=== PATIENT | female | born 1990 | race Caucasian/White ===

== ENCOUNTER → 2017-06-19 | Outpatient (CLI) | payer BC, OTHER ==
--- NOTE | 2017-06-22 08:01 | CT ---
Exam: CT of the abdomen/pelvis without contrast History: Left lower quadrant pain. Hematuria. Previous history of ovarian cysts and kidney stone. Comparison: None Technique: Axial imaging was performed through the abdomen and pelvis without administering intraveno us contrast. Subsequently coronal and sagittal reformations were generated. Automated exposure contro l techniques were used for this study. Findings: The lung bases are clear with no infiltrate or pleural effusion on either side. The liver, spleen, pancreas, and adrenal glands are normal. Kidneys demonstrate no evidence of hydronephrosis, renal mass or radiopaque calculi in the renal arnold ecting systems on either side. A 3 mm calcification is identified in the region of the distal left u reter. However there is no evidence of ureteral dilatation proximal to this point. Nonetheless, the p ossibility of distal left ureteral calculus should be considered. With appears to be oral contrast is present in the stomach. Large and small bowel demonstrate no evid ence of obstruction or inflammatory change. Considerable fecal material is present throughout the col on however Evaluation the pelvis demonstrates an IUD within the uterine cavity. A 4.7 x 3.7 cm left ovarian cyst is seen. In addition a smaller 1.5 cm cyst is noted in the right adnexal region. Bladder is normal a ppearing. No intra-abdominal or pelvic ascites, lymphadenopathy, or masses. The osseous structures are unremarkable. Impression: 1. Bilateral ovarian cysts, as described above. The larger of the 2 is on the left. 2. 3 mm calcification in the region of the distal left ureter. Though there is no evidence of uretera l dilatation or hydronephrosis on the left, the possibility of a distal left ureteral calculus should still be considered. Reported By:
== END ==
LOC: RAD 15:57
PROVIDERS: ATTEND Internal Medicine
DX: R31.9 Hematuria, unspecified (principal); M54.5 Low back pain; N83.291 Other ovarian cyst, right side; N83.292 Other ovarian cyst, left side
CPT/HCPCS: 74176